=== PATIENT | male | born 2000 | race Caucasian/White ===

== ENCOUNTER → 2021-05-15 09:43 | Outpatient (CLI) | payer OTHER, SELFPAY ==
[2021-05-15 09:02] VITALS: BMI 24.3
[2021-05-15 09:49] LABS: Lyme Ab Screen Interpretation REF LAB
[2021-05-24 08:37] LABS: Lyme Scn Total Ab w/Rflx 1.83 ISR (0.00-0.90)
== END ==
PROVIDERS: Referring Provider Physician Assistant; Visit Provider Physician Assistant
DX: R21 Rash and other nonspecific skin eruption (principal); M43.6 Torticollis; R50.9 Fever, unspecified
CPT/HCPCS: 36415; 86618; 87070